=== PATIENT | female | born 1995 | race Caucasian/White ===

== ENCOUNTER 2016-12-09 20:46 | Emergency (ER) | payer BC, OTHER ==
[2016-12-09 20:52] VITALS: TEMP 97.7
--- NOTE | 2016-12-09 21:07 | EDPHY ---
H & P Stated Complaint: blood in urine and stool Time Seen by Provider: 12/09/16 21:06 HPI/ROS: CHIEF COMPLAINT: blood in urine and stool HISTORY OF PRESENT ILLNESS: 21-year-old female presents emergency department concerned about blood in her urine and stool. Patient had her wisdom teeth removed 10 days ago, she has been taking Tylenol and ibuprofen around the clock with intermittent Percocet. Patient reports today she noticed her urine was scott colored, she then went home from work and had a bowel movement that turned the toilet water red. Patient denies abdominal pain, no nausea, no vomiting, no constipation or firm stools. Patient denies urinary frequency, urgency or dysuria. On further questioning the patient has been drinking a negative juice that has a beet base. REVIEW OF SYSTEMS: A comprehensive 10 point review of systems is otherwise negative aside from elements mentioned in the history of present illness. Source: Patient Exam Limitations: No limitations - Personal History LMP (Females 10-55): 15-21 Days Ago - Medical/Surgical History Hx Asthma: No Hx Chronic Respiratory Disease: No Hx Diabetes: No Hx Cardiac Disease: No Hx Renal Disease: No Hx Cirrhosis: No Hx Alcoholism: No Hx HIV/AIDS: No Hx Splenectomy or Spleen Trauma: No Other PMH: bipolar - Social History Smoking Status: Current every day smoker - Physical Exam Exam: Physical Exam Gen: Alert and Oriented, NAD HEENT: PERRL, moist mucous membranes NECK: no meningismus CV: regular rate and regular rhythm PULM: CTAB, no wheezes ABDOMEN: soft, non tender to palpation, BS present BACK: No CVA tenderness : Refused NEURO: Neurologically grossly intact EXTREMITIES: normal appearing SKIN: no rash or break in skin on exposed skin PSYCH: answers questions appropriately. Constitutional: Initial Vital Signs Temperature (C) 36.5 C 12/09/16 20:49 Heart Rate 94 12/09/16 20:49 Respiratory Rate 20 12/09/16 20:49 Blood Pressure 112/68 12/09/16 20:49 O2 Sat (%) 95 12/09/16 20:49 O2 Delivery Mode Room Air Allergies/Adverse Reactions: No Known Allergies Allergy (Unverified 12/09/16 20:49) Home Medications: Medication Instructions Recorded QUEtiapine FUMARATE [Seroquel 200 200 mg PO DAILY 06/11/16 mg (*)] lamoTRIgine [LamICTAL 100 MG (*)] 100 mg PO 06/11/16 Medical Decision Making ED Course/Re-evaluation: Patient with a normal urinalysis and negative test. Upon further questioning the patient had a juice smoothie with beets in it causing her urine and stool to be red. Patient has a normal physical exam without abdominal pain. She is refusing a rectal exam. I am comfortable with this. Patient is given return precautions for any new symptoms or concerns. - Data Points Laboratory Results: 12/09/16 12/09/16 21:29 21:29 Urine Color ANU Urine Appearance CLEAR Urine pH 5.0 (5.0-7.5) Ur Specific [place] 1.012 (1.002-1.030) Urine Protein NEGATIVE (NEGATIVE) Urine Ketones NEGATIVE (NEGATIVE) Urine Blood NEGATIVE (NEGATIVE) Urine Nitrate NEGATIVE (NEGATIVE) Urine Bilirubin NEGATIVE (NEGATIVE) Urine Urobilinogen NEGATIVE EU EU (0.2-1.0) Ur Leukocyte Esterase NEGATIVE (NEGATIVE) Ur Culture Indicated? NOT INDICATED (NI) Urine Glucose NEGATIVE (NEGATIVE) Urine Test NEGATIVE Departure - Departure Disposition: Home, Routine, Self-Care Clinical Impression: Red urine due to beet ingestion Condition: Good Instructions: Shopping for a Healthy Diet (ED) Additional Instructions: Take your medications as prescribed, follow up with your oral surgeon as scheduled. Return to the emergency department for any new symptoms, questions or concerns. Referrals: NONE *PRIMARY CARE P,. [Primary Care Provider] - As per Instructions
[2016-12-09 21:45] LABS: COLOR AMBER; LEUKOCYTE ESTERASE,URINE NEGATIVE (NEGATIVE); NITRITE,URINE NEGATIVE (NEGATIVE)
[2016-12-09 22:23] VITALS: BP 118/73; PULSE 73; RESP 16; O2SAT 97
== END 2016-12-09 22:18 | disposition home or self-care (01) ==
DX: R31.9 Hematuria, unspecified (principal); F17.200 Nicotine dependence, unspecified, uncomplicated

== ENCOUNTER 2018-06-27 09:45 | Emergency (ER) | payer BC, OTHER ==
--- NOTE | 2018-06-27 10:07 | EDPHY ---
H & P Time Seen by Provider: 06/27/18 09:56 HPI/ROS: HPI Right flank pain. Concerned about UTI. 23-year-old female by private vehicle with her boyfriend. This patient was initially seen at an urgent care with complaint of right-sided flank pain since yesterday. She reports that yesterday and the day before she had symptoms consistent with a urinary tract infection including some burning, her back pain and some increased frequency with urination. The symptoms went away but the back pain has persisted. The patient reports that she has had several episodes similar to this since . She has never taken an antibiotic or been formally diagnosed with a urinary tract infection. Her last menstrual period finished 1 week ago. ROS: Constitutional: No fever, no chills. Fatigue. Respiratory: No cough. No shortness of breath. Cardiac: No chest pain, no palpitations. Gastrointestinal: No abdominal pain, no vomiting, no diarrhea. Genitourinary: No hematuria. As above. No vaginal discharge or vaginal bleeding. Musculoskeletal: As above. No neck pain. No myalgias or arthralgias. Skin: No rashes. Neurological: No headache. No focal weakness or altered sensation. Past medical history: Bipolar. She takes Seroquel and Lamictal. Social history: Nonsmoker. Here with her boyfriend. No alcohol. Physical Exam: General Appearance: Alert, no distress. This patient is responding to questions appropriately and in full sentences. This patient appears well- hydrated and well-nourished. Eyes: Pupils equal and round no pallor or injection. No lid edema, erythema or injection. Respiratory: There are no retractions, lungs are clear to auscultation with good air movement bilaterally. Cardiovascular: Regular rate and rhythm. No murmur. Gastrointestinal: Abdomen is soft and nontender, no masses, bowel sounds normal. No focal tenderness at McBurney's point. No Trent sign. Neurological: Motor sensory function is grossly intact. Cranial nerves are normal. Gait is normal. Skin: Warm and dry, no rashes. Musculoskeletal: Neck is supple and nontender. She has mild right-sided CVA tenderness on palpation. No left-sided CVA tenderness on palpation. No midline thoracic, lumbar, sacral tenderness on palpation. Negative same side and cross side straight leg raise test. Extremities are symmetrical. All joints range without pain or impingement. Psychiatric: No agitation. No depression. Database: EKG: Imaging: Procedures: Emergency department course: Triage vital signs reviewed. She is afebrile. She was borderline tachycardic in triage. Patient's presentation is consistent with urinary tract infection and perhaps early pyelonephritis. Urinalysis to be obtained. 12:00 p.m., urinalysis significant for leukocyte esterase and white cells. Given the patient's history pyelonephritis is likely. Urine culture has been sent. Urine is negative. The patient feels comfortable going home and I feel she is safe for discharge. She was given 750 mg of oral Levaquin in the emergency department. She will be continued on this medication for 5 days. She feels comfortable with this plan. Follow-up and return to emergency department precautions have been reviewed with her. All of her questions were answered. She was discharged from the emergency department in good condition. Differential Diagnosis: The differential diagnosis on this patient includes but is not limited to urinary tract infection, pyelonephritis, viral syndrome, musculoskeletal back pain.. This represents a partial list of diagnoses considered. These considerations are based on history, physical exam, past history, reassessment and diagnostic testing. Smoking Status: Current every day smoker Constitutional: Initial Vital Signs Temperature (C) 37.6 C 06/27/18 09:51 Heart Rate 100 06/27/18 09:51 Respiratory Rate 18 06/27/18 09:51 Blood Pressure 124/79 H 06/27/18 09:51 O2 Sat (%) 98 06/27/18 09:51 O2 Delivery Mode Room Air Allergies/Adverse Reactions: No Known Allergies Allergy (Unverified 06/27/18 09:51) Home Medications: Medication Instructions Recorded QUEtiapine FUMARATE [Seroquel 200 200 mg PO DAILY 06/11/16 mg (*)] lamoTRIgine [LamICTAL 100 MG (*)] 100 mg PO 06/11/16 levOFLOXACIN [levAQUIN (*)] 750 mg PO DAILY #4 tab 06/27/18 Medical Decision Making - Data Points Laboratory Results: 06/27/18 10:49 Urine Color PALE YELLOW Urine Appearance CLEAR Urine pH 6.0 (5.0-7.5) Ur Specific [place] 1.003 (1.002-1.030) Urine Protein NEGATIVE (NEGATIVE) Urine Ketones TRACE H (NEGATIVE) Urine Blood NEGATIVE (NEGATIVE) Urine Nitrate NEGATIVE (NEGATIVE) Urine Bilirubin NEGATIVE (NEGATIVE) Urine Urobilinogen NEGATIVE EU EU (0.2-1.0) Ur Leukocyte Esterase 1+ H (NEGATIVE) Urine RBC 1-3 /hpf /hpf (0-3) Urine WBC 5-10 /hpf H /hpf (0-3) Ur Epithelial Cells TRACE /lpf /lpf (NONE-1+) Urine Bacteria 3+ /hpf H /hpf (NONE SEEN) Urine Mucus TRACE /lpf /lpf (NONE-1+) Urine Glucose NEGATIVE (NEGATIVE) Medications Given: Discontinued Medications Levofloxacin (Levaquin) 750 mg PO EDNOW ONE PRN Reason: Protocol Stop: 06/27/18 12:03 Last Admin: 06/27/18 12:05 Dose: 750 mg Point of Care Test Results: Urine HCG Results Negative Departure - Departure Disposition: Home, Routine, Self-Care Clinical Impression: Pyelonephritis Condition: Good Instructions: Kidney Infection (ED) Additional Instructions: Read and follow provided instructions. Follow-up with your primary care physician in 1-2 days for re-evaluation. Take medication as prescribed through entire course of treatment. Return to the emergency department for worsening symptoms, worsening back pain, fever, vomiting or other serious concerns. Referrals: NONE *PRIMARY CARE P,. [Primary Care Provider] - As per Instructions Prescriptions: levOFLOXACIN [levAQUIN (*)] 750 mg PO DAILY #4 tab
[2018-06-27 12:21] VITALS: BP 108/79
== END 2018-06-27 12:20 | disposition home or self-care (01) ==
DX: N12 Tubulo-interstitial nephritis, not specified as acute or chronic (principal)